=== PATIENT | female | born 1960 | race Caucasian/White ===

== ENCOUNTER 2023-08-18 14:27 | Emergency (ER) | payer BC, SELFPAY ==
[2023-08-18 14:33] VITALS: BP 126/75; PULSE 85; RESP 14; TEMP 35.5; O2SAT 98
--- NOTE | 2023-08-18 14:38 | ECG_ITS ---
SEE SCANNED COPY FOR CONFIRMED REPORT. MTDD
--- NOTE | 2023-08-18 14:43 | ED.GENADULT ---
HPI - General Adult General Chief complaint: Chest Pain Stated complaint: Chest Pain Source: patient, RN notes reviewed and old records reviewed Mode of arrival: ambulatory Limitations: no limitations History of Present Illness HPI narrative: 62-year-old female presents to [facility] with complaints of chest pain /abdominal pain that started 5-6 days ago. Patient states he has also had nausea /vomiting/ diarrhea. Patient states cough primary care physician was told to come here. Patient states has also been having some lightheadedness. Related Data Home Medications Medication Instructions Recorded Confirmed atorvastatin 20 mg tablet 20 mg PO DAILY 08/18/23 08/18/23 cetirizine 10 mg tablet 10 mg PO DAILY 08/18/23 08/18/23 duloxetine 60 mg capsule,delayed 60 mg PO DAILY 08/18/23 08/18/23 release famotidine 20 mg tablet 40 mg PO BID 08/18/23 08/18/23 gabapentin 300 mg capsule 600 mg PO QHS 08/18/23 08/18/23 meclizine 25 mg tablet 25 mg PO DAILY 08/18/23 08/18/23 methocarbamol 500 mg tablet 1,000 mg PO TID PRN Muscle Spasm 08/18/23 08/18/23 ondansetron HCl 4 mg tablet 4 mg PO Q8H PRN Nausea 08/18/23 08/18/23 Allergies Allergy/AdvReac Type Severity Reaction Status Date / Time No Known Allergies Allergy Verified 08/18/23 14:49 Review of Systems Constitutional: Constitutional: Reports no additional constitutional complaints, Denies body ache(s), Denies chills, Denies fatigue, Denies fever(s) and Denies headache(s) Eyes: Eyes: Reports no additional eye complaints and Denies blurry vision ENT: Reports system reviewed and no additional complaints, except as documented, Denies vertigo, Reports dizziness, Denies ear discharge, Denies otalgia, Denies facial pain, Denies headache(s), Denies nasal congestion, Denies nasal discharge, Denies sinus pain, Denies sinus pressure and Denies sore throat Cardiovascular: Cardiovascular: Reports no additional cardiovascular complaints, Reports chest pain, Denies chest pain at rest, Denies rapid heart rate and Denies dyspnea Respiratory: Respiratory: Reports no additional respiratory complaints, Denies chest congestion, Denies cough, Denies pain on inspiration, Denies pain with cough and Denies dyspnea Gastrointestinal: Gastrointestinal: Reports abdominal pain, Reports diarrhea, Reports nausea and Reports vomiting Genitourinary: Genitourinary: Reports no additional female genitourinary complaints Integumentary/Breasts: Skin/Breast: Denies rash Neurologic: Reports system reviewed and no additional complaints, except as documented, Denies vertigo, Denies dizziness and Denies headache(s) Endocrine: Endocrine: Denies fatigue PMFSH Comments At the time of my signature, I reviewed and agree with the nursing past medical, surgical, social, and family history. There is no relevant family history pertinent to the patient complaint. Exam Const: General: cooperative, healthy appearing, no acute distress and well nourished Nutritional Appearance: well nourished Orientation/consciousness: patient oriented x3 Limitations: no limitations HENMT: Head: normal to inspection and normocephalic Ears: external ears normal Face/Nose/Sinus: normal facial exam Face and sinus: normal facial exam Mouth: Yes Normal oral and palatal mucosa present, Yes oropharynx normal and Yes moist mucous membranes Throat: tonsils normal, uvula midline and no uvular edema Eyes: General: appearance normal, both eyes and all related structures Sclera: sclerae normal Pupils: Equal, round and reactive pupils present Chest: Chest palpation & inspection: normal inspection of the chest and normal palpation of entire chest wall Resp: Effort & Inspection: normal respiratory effort, able to speak in complete sentences, no audible wheezes, no cough, no respiratory distress and no retractions Auscultation: clear to auscultation bilaterally, no crackles, no rales, no rhonchi and no wheezes Cardio: Rate: regular rate Rhythm: regul
== END 2023-08-18 14:55 | disposition short-term general hospital (02) ==
PROVIDERS: Emergency Provider Registered Nurse; PCP Internal Medicine
DX: R10.12 Left upper quadrant pain (principal); R11.2 Nausea with vomiting, unspecified; R19.7 Diarrhea, unspecified; E78.00 Pure hypercholesterolemia, unspecified; K21.9 Gastro-esophageal reflux disease without esophagitis; K22.70 Barrett's esophagus without dysplasia; M06.9 Rheumatoid arthritis, unspecified
CPT/HCPCS: 93005; 99213; G0463

== ENCOUNTER 2023-08-18 15:38 | Emergency (ER) | payer BC, SELFPAY ==
--- NOTE | ~2023-08-18 | CT_ITS ---
EXAMINATION: CT abdomen pelvis w con DATE: 08/18/2023 17:17 INDICATION: Left upper quadrant abdominal pain, chest pain, shortness of breath TECHNIQUE: Computed tomography (CT) of the abdomen and pelvis was performed with 100 CC Omnipaque 350 intravenous contrast. Automated exposure control and iterative reconstruction technique were employe d. Exam dose: 926.11 mGy-cm total exam DLP. COMPARISON: None. FINDINGS: Honeycombing is noted in the inferolateral aspect posteriorly of the right upper lobe. Ther e is minimal bilateral lower lobe dependent atelectasis. Heart size is within normal limits. No pericardial or pleural effusion. Small sliding hiatal hernia. Status post cholecystectomy. No bile duct or pancreatic duct dilatation. No hepatic, splenic, pancreatic, adrenal or renal space-occupying mass lesion. No urinary tract calculus or hydroureteronephrosis. Normal caliber of the abdominal aorta with atherosclerotic calcification of the aorta as well as ryan c and femoral arteries. No intraperitoneal or retroperitoneal or pelvic mass lesion or adenopathy or ascites. The urinary dougie dder is unremarkable. Status post hysterectomy. Status post appendectomy. No bowel obstruction, bowel wall thickening, pneumatosis or intraperitoneal free air. Procedure disease and mild associated retrolisthesis at L5-S1. No suspicious osteolytic or osteoblastic lesions. IMPRESSION: Small sliding hiatal hernia Status post cholecystectomy Status post appendectomy Status post post hysterectomy Reviewed, dictated and finalized at [facility]. Reviewed, dictated and finalized at [facility].
[2023-08-18 15:41] VITALS: BP 152/89; PULSE 67; RESP 15; TEMP 36.6; O2SAT 97
[2023-08-18 15:45] VITALS: O2SAT 99
[2023-08-18] MEDS: SODIUM CHLORIDE 0.9% IV 1,000 ML 999 ML IV CONT (16:08)
[2023-08-18] MEDS: MORPHINE SULFATE (*CRX) 4 MG/ML INJ IV PUSH (16:09)
[2023-08-18] MEDS: ONDANSETRON INJ 4 MG/2 ML VIAL IV PUSH (16:09)
[2023-08-18 16:20] LABS: Basophils Absolute Auto 0.1 K/mm3 (0.0-0.1); Basophils Percent Auto 0.6 % (0.2-1.2); Eosinophils Absolute Auto 0.2 K/mm3 (0-0.3); Eosinophils Percent Auto 1.6 % (0-4.4); Hematocrit 47.9 % (37.0-47.0); Hemoglobin 15.7 g/dL (12.0-15.0); Immature Granulocyte Absolute 0.04 K/mm3 (0.00-0.031); Immature Granulocyte Percent A 0.4 % (0-0.5); Lymphocytes Absolute Auto 4.82 K/mm3 (0.9-3.2); Lymphocytes Percent Auto 46.8 % (18.3-44.2); Mean Corpuscular HGB Conc 32.8 g/dl (32-36); Mean Corpuscular Hemoglobin 31.7 pg (26-34); Mean Corpuscular Volume 96.6 fl (80-100); Mean Platelet Volume 9.8 fl (7.4-10.4); Monocytes Absolute Auto 0.9 K/mm3 (0.1-0.6); Monocytes Percent Auto 8.6 % (2.6-8.5); Neutrophils Absolute Auto 4.3 K/mm3 (1.3-6.7); Platelet Count Result 277 k/mm3 (150-375); Red Blood Count 4.96 M/mm3 (4.2-5.4); Red Cell Distribution Width 13.7 % (11.5-14.5); White Blood Count 10.3 K/mm3 (4.5-10.0)
[2023-08-18 16:30] LABS: INR 0.9; Prothrombin Time 12.8 Seconds (11.1-14.7)
[2023-08-18 16:31] LABS: Partial Thromboplastin Time 25.8 Seconds (22.3-36.8)
[2023-08-18 16:42] LABS: Alanine Aminotransferase 16 U/L (6-35); Albumin Level 4.4 g/dL (3.5-5.1); Alkaline Phosphatase 90 U/L (38-126); Anion Gap 9 mmol/L (4-12); Aspartate Amino Transferase 22 U/L (14-36); Bilirubin,Total 0.5 mg/dL (0.2-1.3); Blood Urea Nitrogen 12 mg/dL (7-17); Carbon Dioxide 22 mmol/L (22-30); Chloride 108 mmol/L (98-107); Estimated CRCL calculation 51 ml/min; Estimated Glomerular Filt Rate 46; Glucose 113 mg/dL (65-110); Lipase 68 U/L (23-300); Sodium 139 mmol/L (137-145)
--- NOTE | 2023-08-18 16:45 | ED.GENADULT ---
HPI - General Adult General Chief complaint: Chest Pain Stated complaint: Left flank pain Time Seen by Provider: 08/18/23 15:41 History of Present Illness HPI narrative: Patient is a 62-year-old female who presents ER with epigastric and left upper quadrant abdominal pain ongoing intermittently over the last 4 weeks. Most recently has been lasting 5-6 days. It is associated with diarrhea as well as nausea vomiting. No fevers or chills or sweats. No chest pain or chest pressure. No urinary frequency urgency or dysuria. Denies history of IBS or IBD. Cannot identify aggravating nor alleviating factors. Related Data Home Medications Medication Instructions Recorded Confirmed atorvastatin 20 mg tablet 20 mg PO DAILY 08/18/23 08/18/23 cetirizine 10 mg tablet 10 mg PO DAILY 08/18/23 08/18/23 duloxetine 60 mg capsule,delayed 60 mg PO DAILY 08/18/23 08/18/23 release famotidine 20 mg tablet 40 mg PO BID 08/18/23 08/18/23 gabapentin 300 mg capsule 600 mg PO QHS 08/18/23 08/18/23 meclizine 25 mg tablet 25 mg PO DAILY 08/18/23 08/18/23 methocarbamol 500 mg tablet 1,000 mg PO TID PRN Muscle Spasm 08/18/23 08/18/23 ondansetron HCl 4 mg tablet 4 mg PO Q8H PRN Nausea 08/18/23 08/18/23 Allergies Allergy/AdvReac Type Severity Reaction Status Date / Time methotrexate Allergy Anaphylaxis Verified 08/18/23 15:49 topiramate [From Topamax] AdvReac Diarrhea Verified 08/18/23 15:49 Review of Systems Review of Systems: All systems reviewed & are unremarkable except as noted in HPI and below Constitutional: Constitutional: Reports no additional constitutional complaints ENT: Reports system reviewed and no additional complaints, except as documented Cardiovascular: Cardiovascular: Reports no additional cardiovascular complaints Respiratory: Respiratory: Reports no additional respiratory complaints Gastrointestinal: Gastrointestinal: Reports abdominal pain, Reports diarrhea, Reports nausea and Reports vomiting PMFSH Past Medical History Medical History (Updated 08/18/23 @ 18:17 by Eddie Ibarra MD) GERD (gastroesophageal reflux disease) Hyperlipidemia Surgical History Surgical History (Updated 08/18/23 @ 16:48 by Eddie Ibarra MD) History of cholecystectomy History of hysterectomy Hx of appendectomy Exam Narrative: GENERAL: Well-appearing, well-nourished, and in no acute distress. HEAD: Normocephalic, atraumatic. ENT: Mucous membranes moist. CHEST: Clear to auscultation. No respiratory distress. HEART: Regular rate and rhythm. Normal peripheral pulses. ABDOMEN: Soft, mild discomfort to the left upper quadrant without guarding, nondistendeds. EXTREMITIES: Normal range of motion. No edema. SKIN: Warm, dry, no rash. NEURO: Alert and oriented x3. PSYCH: Normal mood and affect. Course Course Emergency Course: Patient resting comfortably. Informed of results. Bandana appropriate for discharge home. Vital Signs Vital signs: Vital Signs Temperature 98 F 08/18/23 15:41 Pulse Rate 67 08/18/23 15:41 Respiratory Rate 08/18/23 15:41 Blood Pressure 152/89 H 08/18/23 15:41 Pulse Oximetry 97 08/18/23 15:41 Oxygen Delivery Room Air 08/18/23 15:41 Temperature 98 F 08/18/23 15:41 Pulse Rate 67 08/18/23 15:41 Respiratory Rate 15 08/18/23 15:41 Blood Pressure 152/89 H 08/18/23 15:41 Pulse Oximetry 99 08/18/23 15:45 Oxygen Delivery Room Air 08/18/23 15:45 Medical Decision Making Vital Signs Vital Signs: Vital Signs Temperature 98 F 08/18/23 15:41 Pulse Rate 67 08/18/23 15:41 Respiratory Rate 15 08/18/23 15:41 Blood Pressure 152/89 H 08/18/23 15:41 Pulse Oximetry 97 08/18/23 15:41 Oxygen Delivery Room Air 08/18/23 15:41 Temperature 98 F 08/18/23 15:41 Pulse Rate 67 08/18/23 15:41 Respiratory Rate 15 08/18/23 15:41 Blood Pressure 152/89 H 08/18/23 15:41 Pulse Oximetry 99 08/18/23 15:45 Oxygen Delivery Room Air
[2023-08-18 17:00] VITALS: BP 143/65; PULSE 85; RESP 13; O2SAT 95
== END 2023-08-18 18:37 | disposition home or self-care (01) ==
PROVIDERS: Emergency Provider Emergency Medicine; PCP Internal Medicine
DX: K44.9 Diaphragmatic hernia without obstruction or gangrene (principal); E78.5 Hyperlipidemia, unspecified; K21.9 Gastro-esophageal reflux disease without esophagitis; Z90.49 Acquired absence of other specified parts of digestive tract; Z90.710 Acquired absence of both cervix and uterus
CPT/HCPCS: 36415; 74177; 80053; 83690; 85025; 85610; 85730; 93005; 96361; 96374; 96375; 99284; J2270; J2405; J7030; Q9967